=== PATIENT | female | born 1955 | race Caucasian/White ===

== ENCOUNTER 2017-10-25 11:03 | Day surgery (SDC) | payer BC ==
[2017-10-25] MEDS ORDERED: Lactated Ringers 1,000 ML IV SCH (12:30)
[2017-10-25] MEDS ORDERED: ceFAZolin 2 GM in Premix Bag 1 BAG IV ONE (12:30)
--- NOTE | 2017-10-25 13:00 | PCM.PREANE ---
Preanesthetic Assessment - Anesthesia/Transfusion/Family Hx Anesthesia History: Prior Anesthesia Without Reaction Family History of Anesthesia Reaction: No Transfusion History: No Prior Transfusion(s) Intubation History: Unknown - Review of Systems General: No Symptoms Pulmonary: No Symptoms Cardiovascular: No Symptoms Gastrointestinal: No Symptoms Neurological: No Symptoms Other: Reports: None - Physical Assessment O2 Sat by Pulse Oximetry: 97 Respiratory Rate: 16 Vital Signs: Last Vital Signs Temp 36.6 C 10/25/17 12:39 Pulse 72 10/25/17 12:39 Resp 16 10/25/17 12:39 BP 160/77 H 10/25/17 12:39 Pulse Ox 97 10/25/17 12:39 Height: 1.65 m Weight: 68.039 kg ASA Class: 2 Mental Status: Alert & Oriented x3 Airway Class: Mallampati = 2 Dentition: Reports: Partial (upper) Thyro-Mental Finger Breadths: 3 Mouth Opening Finger Breadths: 3 ROM/Head Extension: Full Lungs: Clear to Auscultation, Normal Respiratory Effort Cardiovascular: Regular Rate, Regular Rhythm - Allergies Allergies/Adverse Reactions: Allergies Allergy/AdvReac Type Severity Reaction Status Date / Time Sulfa (Sulfonamide Allergy "did not Verified 10/22/17 09:01 Antibiotics) work" - Blood Blood Available: No - Anesthesia Plan Pre-Op Medication Ordered: None - Acknowledgements Anesthesia Type Planned: General Anesthesia Pt an Appropriate Candidate for the Planned Anesthesia: Yes Alternatives and Risks of Anesthesia Discussed w Pt/Guardian: Yes Pt/Guardian Understands and Agrees with Anesthesia Plan: Yes PreAnesthesia Questionnaire HEENT History: Reports: Other (See Below) Other HEENT History: wears glasses, has top partial Musculoskeletal History: Reports: Back Pain, Chronic (on and off), Fracture Neurological History: Reports: None Other Psychiatric History: takes fluoxetine for hot flashes - Past Surgical History Head Surgeries/Procedures: Reports: None Neurological Surgical History: Reports: Lumbar Spine Other Neurological Surgeries/Procedures: hx back fusion - SUBSTANCE USE Smoking Status *Q: Former Smoker (quit 25 years ago) Recreational Drug Use History: No - HOME MEDS Home Medications: Home Meds Acetaminophen 4 tab PO BID 10/22/17 [History] FLUoxetine HCl [Fluoxetine HCl] 40 mg PO DAILY 10/22/17 [History] - CURRENT (IN HOUSE) MEDS Current Meds: Current Medications Cefazolin Sodium/Dextrose 2 gm (/ Premix) 50 mls @ 100 mls/hr IV ONETIME ONE Stop: 10/25/17 12:59 Lactated Ringer's (Ringers, Lactated) 1,000 mls @ 125 mls/hr IV ASDIRECTED [facility] Last Admin: 10/25/17 12:43 Dose: 125 mls/hr
[2017-10-25] MEDS ORDERED: Bupivacaine 0.5% 30 ML SDV ONE (13:05)
[2017-10-25] MEDS ORDERED: Lidocaine 1% 20 ML MDV ONE (13:05)
[2017-10-25] MEDS ORDERED: fentaNYL 100 MCG/2 ML SDV ONE (13:12)
[2017-10-25] MEDS ORDERED: Propofol 200 MG/20 ML SDV ONE ×2 (13:12→14:34)
[2017-10-25] MEDS ORDERED: Ketorolac 30 MG/ML SDV ONE (13:13)
[2017-10-25] MEDS ORDERED: Midazolam 1 MG/ML 2 ML SDV ONE (13:13)
[2017-10-25] MEDS ORDERED: Lidocaine 2% 5 ML SDV ONE (13:13)
[2017-10-25] MEDS ORDERED: Glycopyrrolate 0.2 MG/ML SDV ONE (13:13)
[2017-10-25] MEDS ORDERED: Ondansetron 4 MG/2 ML SDV ONE (13:13)
[2017-10-25] MEDS ORDERED: ceFAZolin 1 GM Vial ONE (13:36)
[2017-10-25] MEDS ORDERED: Bupivacaine 0.5% 10 ML SDV ONE (13:53)
[2017-10-25] MEDS ORDERED: Desflurane 240 ML Bottle ONE (14:30)
[2017-10-25] MEDS: fentaNYL 100 MCG/2 ML SDV IVPUSH PRN ×2 (16:09→16:14)
--- NOTE | 2017-10-25 16:34 | PCM.POSTAN ---
POST ANESTHESIA ASSESSMENT - MENTAL STATUS Mental Status: Alert, Oriented - RESPIRATORY Respiratory Status: Respiratory Rate WNL, Airway Patent, O2 Saturation Stable - CARDIOVASCULAR CV Status: Pulse Rate WNL, Blood Pressure Stable - GASTROINTESTINAL GI Status: No Symptoms - PAIN Pain Score: 2 - POST OP HYDRATION Hydration Status: Adequate & Stable
--- NOTE | 2017-10-25 17:02 | PCM.OPNOTE ---
- General Post-Op/Procedure Note Date of Surgery/Procedure: 10/25/17 Operative Procedure(s): 1. Wang osteotomy right hallux. 2. Second MPJ capsulotomy right foot. 3. PIPJ arthroplasty with extensor tendon lengthening and temporary K-wire fixation right foot. Findings: consistent with diagnosis Pre Op Diagnosis: 1. hallux valgus right foot. 2. hammertoe right 2nd toe Post-Op Diagnosis: 1. hallux valgus right foot. 2. hammertoe right 2nd toe Anesthesia Technique: General LMA Primary Surgeon: Jose Angel Villanueva Pathology: none EBL in mLs: 5 Condition: Good Free Text/Narrative:: materials: [place] Compression Staple [id number] mm, 4-0 vicryl, 4-0 prolene, 0.045" k-wire
--- NOTE | 2017-10-25 17:18 | PCM48HPAN ---
Post Anesthesia Note - EVALUATION WITHIN 48HRS OF ANESTHETIC Vital Signs in Normal Range: Yes Patient Participated in Evaluation: Yes Respiratory Function Stable: Yes Airway Patent: Yes Cardiovascular Function Stable: Yes Hydration Status Stable: Yes Pain Control Satisfactory: Yes Nausea and Vomiting Control Satisfactory: Yes Mental Status Recovered: Yes Resp Rate: 14
--- NOTE | 2017-10-26 00:12 | OR ---
SURGEON: Jose Angel Villanueva DPM DATE OF PROCEDURE: 10/25/2017 PREOPERATIVE DIAGNOSES: 1. Hallux valgus, right foot. 2. Hammertoe contracture of second digit, right foot. PROCEDURES: 1. Wang osteotomy of the hallux of the right foot. 2. Capsulotomy of the metatarsophalangeal joint, second digit right foot. 3. Proximal interphalangeal joint arthroplasty with extensor tendon lengthening and temporary wire fixation second digit, right foot. ANESTHESIA: General LMA. HEMOSTASIS: Above ankle pneumatic tourniquet inflated to a pressure of 250 mmHg. MATERIALS: [place] compression staple measuring 10 x 10 x 10 mm 4-0 Vicryl, 4-0 Prolene, and one 0.045 inch K-wire. PATHOLOGY: None. COMPLICATIONS: None. JUSTIFICATION FOR THE PROCEDURES: The patient was first seen in my office approximately two months ago with complaint of painful second digit on the right toe due to a hammertoe contracture. She had tried conservative measures such as toe pads, crawford, various cushions, and protective materials, however, she could not alleviate the symptoms and we discussed in detail that the condition would not get better on its own that it would either be stable in its current state, which was not acceptable to the patient or could even worsen, which was also obviously not acceptable to the patient. We discussed the surgical option to perform the Wang osteotomy on the right hallux in order to straighten the toe sufficiently that it would not get in the way of the second toe and then also we discussed in detail the proximal interphalangeal joint arthroplasty, extensor tendon lengthening, wire fixation, and capsulotomy of the second metatarsophalangeal joint that would be necessary to strengthened and maintain a straightened second toe, therefore, prevent the irritation and pain resulting from the dorsal contracture at the proximal interphalangeal joint of the second toe. The patient elected to proceed with surgery. All questions were answered. No guarantees were given or implied and all risks including the risk for postoperative infection and possible recurrence were discussed. PROCEDURES IN DETAIL: 1. Wang osteotomy of the hallux of the right foot. The patient was brought to the operating room, placed on the operating table in supine position and per her request, pillows were placed under her knees so that her back would rest in a more comfortable position as she has a history of back fusion. An aseptic scrub and drape was performed about the patient's right lower extremity and she was draped in the usual sterile manner. At this time, a marking pen was used to plan incisions over the dorsal medial aspect of the proximal phalanx of the hallux of the right great toe and also a dorsal linear incision running from the second metatarsophalangeal joint area distally to the proximal interphalangeal joint area of the second toe. The right lower extremity was then exsanguinated with an Esmarch bandage and the tourniquet was inflated to a pressure of 250 mmHg and attention was directed to the incision on the right great toe. The incision was made and deepened to the subcutaneous layer. All small bleeders were cut, clamped, ligated, or avoided, retracted out away, any neurovascular structures and muscle bellies identified. Specifically, the extensor hallucis tendon was identified and retracted out of the way. As the incision was deepened and layered dissection proceeded to bone, the bone was dissected free from attachments in that area and utilizing an oscillating saw, a cut was made perpendicular to the shaft of the bone on the proximal portion of the proximal phalanx of the hallux and then a slightly angled one running from distal medial to proximal lateral to form the apex. With the first cut was made and a small wedge was excised of bone, the bone was then fixated under intraoperative fluoroscopy by drilling holes using the [employer] compression staple guide and intraoperative fluoroscopy indicated that better alignment could be achieved. I removed the staple, placed a 0.062 K-wire from distal to proximal through the tuft of the great toe and into the distal portion of the proximal phalanx of the great toe to better align the toe for staple compression. Staple was then prepared with the drill holes again and inserted and compression was judged to be excellent and alignment is well judged to be excellent. The area was flushed prior to inserting the staple and it was flushed again afterwards. The incision was left open and covered with moist saline soaked gauze. Attention was then directed to procedure #2. 2. Capsulotomy of the second metatarsophalangeal joint, right foot: Following the planned incision line, an incision was made and deepened through the superficial and subcutaneous layers over the second toe beginning just proximal to the second metatarsophalangeal joint and extending just distal to the proximal interphalangeal joint of the second toe of the right foot. Again, care was taken to cut, clamp, or ligate any small bleeders and retract the structures out of the way including the extensor tendon. The dissection continued down to bone and the capsule over the second metatarsophalangeal joint and a small [place] elevator was placed around the second metatarsal head and manipulated to free adhesions from the second metatarsal head crossing the joint. It was then withdrawn and attention was directed to the dorsal aspect of the proximal phalanx of the second toe and procedure #3 commenced. 3. Proximal interphalangeal joint arthroplasty of the right second toe with extensor tendon lengthening and temporary wire fixation. A Z-plasty incision was made over the extensor tendon of the second toe and the proximal and distal pieces of the tendon were retracted out of the way and a [place] blade was utilized to free up the lateral collateral ligaments and the medial collateral ligaments of the second toes proximal interphalangeal joint about the head of the proximal phalanx. The head of the proximal phalanx was carefully dissected free of any remaining attachments and grasped with a small towel clamp and a periosteal elevator was placed underneath it to protect underlying structures and the oscillating saw was used to make a transverse cut across the bone removing the head of the proximal phalanx of the second toe of the right foot. A 0.045 K-wire was then utilized and was run from proximal to distal from the base of the middle phalanx through the middle and distal phalanx and out of the toe under the nail and through the distal tuft. It was then retrograded back the other way into the newly revealed distal portion of the proximal phalanx and through the second metatarsophalangeal joint and into the head of the second metatarsal itself. The wire was cut after being grasped with a straight Reid hemostat and bent upward. It was cut and it will remain in place for up to three weeks for temporary fixation. The extensor tendon was then reexamined. The area was flushed again with normal sterile saline and it should be mentioned that all movements of the wire were done under intraoperative fluoroscopy as well as direct visualization. The extensor tendon was then reapproximated. Both the proximal and distal portions brought together under proper physiologic tension. The entire area was flushed again and layered closure commenced of both incision sites, both second toe and the great toe with the deep and subcutaneous tissues reapproximated with 4-0 Vicryl suture and the superficial skin with 4-0 Prolene suture. 10 mL of 0.5% Marcaine plain was infiltrated into the great toe and second toe and second metatarsal head area of the right foot. The tourniquet was deflated at the time of 120 minutes and final sutures were placed followed by Betadine-soaked Xeroform gauze. Fluff gauze was applied over the exposed wire for protection and layered Kerlix and fluff gauze were applied over the entire distal right foot. Kerlix roll was used to secure all dressings and added additional padding and a 4-inch Abdias bandage was applied to secure all dressings. The patient tolerated the operation and the anesthesia well with no complications noted and a prompt time hyperemic response was noted to all digits of the right foot upon deflation of the tourniquet. Following conclusion of the operation, the patient was transferred to the movable bed and was brought from the operating room to the recovery room and after a brief stay will be discharged home. She has written and oral instructions for postoperative care. Follow up in my office in two days. My cell phone number has been provided to her and her and they were instructed to contact me with any concerns at any time. The patient has a prescription for adequate analgesic care and a postoperative shoe was affixed to the right foot in the recovery room. KAEL / GAVIN /[id number]
--- NOTE | 2017-10-26 10:25 | CR ---
EXAMINATION: Unspecified foot HISTORY: Surgery COMPARISON: None TECHNIQUE: Total of 15 fluoroscopic images provided FINDINGS/IMPRESSION: Operative control films demonstrate surgical changes secondary to bunion repair. There is pin fixation of the second digit.
--- NOTE | 2017-10-26 15:25 | PN ---
PATIENT IDENTIFICATION: The patient is a 62-year-old female. PREOPERATIVE DIAGNOSES: 1. Hallux valgus, right foot. 2. Hammertoe contracture, right second toe. PLANNED PROCEDURES: 1. Wang osteotomy of the hallux, right foot. 2. Capsulotomy of the second metatarsophalangeal joint, right foot. 3. Proximal interphalangeal joint arthroplasty of the second digit, right foot, with extensor tendon lengthening and temporary wire fixation. ALLERGIES: Listed as sulfa, however, the patient explains this was not an actual allergic reaction, but rather a failure of the sulfa antibiotic to be effective on an infection she had on her nose at one point. CURRENT MEDICATIONS: 1. Fluoxetine 40 mg once daily. 2. Acetaminophen as needed. PAST MEDICAL HISTORY: 1. Postmenopausal state with vasomotor symptoms, for which she takes fluoxetine. 2. History of lower back pain, status post lumbar fusion in 2011. PAST SURGICAL HISTORY: Significant for the lumbar fusion in 2011. SOCIAL HISTORY: The patient is a former smoker. She quit many years ago. LABORATORY DATA: Labs from October 15, 2017: WBC 4.2, hemoglobin 12.8, hematocrit 41.0, platelets 263,000. Blood glucose 86, calcium 9.8, BUN 17, creatinine 0.71, sodium 138, potassium 4.5, chloride 102, bicarbonate is 27. Urinalysis unremarkable. DIAGNOSTIC DATA: The patient underwent a 12-lead EKG showing normal sinus rhythm. PLAN: The patient is cleared for surgery by Dr. Filipe Rangel with no contraindications to surgery. All patient questions have been answered. No guarantees expressed or implied. KAEL ALONSO /[id number]
== END 2017-10-25 17:25 | disposition home or self-care (01) ==
LOC: MW.SDS 11:03
PROVIDERS: ATTEND Podiatrist Foot & Ankle Surgery
DX: M20.11 Hallux valgus (acquired), right foot (principal); M20.41 Other hammer toe(s) (acquired), right foot; N18.9 Chronic kidney disease, unspecified; Z87.891 Personal history of nicotine dependence; Z79.899 Other long term (current) drug therapy; Z88.2 Allergy status to sulfonamides
CPT/HCPCS: 01480; 76001; 76001-26; C1713; J0690; J1885; J2250; J2405; J2704; J3010; J7120

== ENCOUNTER 2022-04-18 12:30 | Emergency (ER) | payer BC ==
[2022-04-18] MEDS ORDERED: Sodium Chloride 0.9% 1,000 ML IV ONE (13:45)
[2022-04-18] MEDS ORDERED: Ondansetron 4 MG/2 ML SDV IVPUSH ONE (13:46)
[2022-04-18] MEDS ORDERED: Morphine 4 MG/ML Syringe IVPUSH ONE (13:47)
[2022-04-18] MEDS ORDERED: Acetaminophen 500 MG Tab PO ONE (13:47)
[2022-04-18] MEDS ORDERED: Indomethacin 25 MG Cap PO ONE (19:07)
== END 2022-04-18 20:15 ==
LOC: MW.ED 12:30
DX: T84.59XA Infection and inflammatory reaction due to other internal joint prosthesis, initial encounter (principal); M10.9 Gout, unspecified
CPT/HCPCS: 73560; 96374; 96375; 99283; A9270; J2270; J2405; J7030